=== PATIENT | female | born 1980 | race Caucasian/White ===

== ENCOUNTER 2023-11-18 12:19 | Outpatient (OUT) | payer SELFPAY ==
[2023-11-20 03:07] LABS: Vitamin B12 >2000 pg/mL (232-1245)
== END 2023-11-18 12:20 | disposition home or self-care (01) ==
DX: R42 Dizziness and giddiness (principal); R09.89 Other specified symptoms and signs involving the circulatory and respiratory systems
CPT/HCPCS: 36415; 82607; 83540

== ENCOUNTER 2024-05-21 02:17 | Emergency (ER) | payer SELFPAY ==
[2024-05-21] VITALS (33 sets, daily range): BP systolic 115–142; BP diastolic 62–86; PULSE 53–86; TEMP 36.6; O2SAT 98–99; BMI 31.0
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
--- NOTE | 2024-05-21 02:45 | XR_ITS ---
The [address] [address] Patient Name: RITA VERNON MRN: [id number] date: 1980 Sex: F Assigned Patient Location: ER Current Patient Location: ED.MAIN Accession/Order Number: [id number] Exam Date: 05/21/2024 03:17 Report Date: 05/21/2024 04:51 At the request of: BRAD RIZZO Procedure: XR chest 2V EXAM: XR chest 2V HISTORY: abdominal pain COMPARISON: None. TECHNIQUE: 2 views of the chest were obtained. FINDINGS: The cardiac silhouette is normal in size. The lungs are clear. There is no significant pneumothorax or pleural effusion. No acute osseous abnormality is seen. XR/XR chest 2V IMPRESSION: 1. No acute cardiopulmonary abnormality. Electronically authenticated by: Brianda FLEMING Date: 05/21/2024 04:51
--- NOTE | 2024-05-21 02:45 | ED.ABDPAIN1 ---
HPI - Abdominal Pain General Chief Complaint: Abdominal Pain Stated Complaint: ABD PAIN/BACK PAIN Time Seen by Provider: 05/21/24 02:42 Source: patient Mode of arrival: walk-in Limitations: no limitations History of Present Illness HPI narrative: presents complaining of epigastric pain that started yesterday afternoon. Associated with nausea. also pain right back. Not short of breath Related Data Home Medications ?Medication ?Instructions ?Recorded ?Confirmed ferrous sulfate 325 mg (65 mg 325 mg PO DAILY 05/21/24 05/21/24 iron) tablet (iron) folic acid 1 mg tablet 1,000 mcg PO DAILY 05/21/24 05/21/24 Allergies Allergy/AdvReac Type Severity Reaction Status Date / Time Iodinated Contrast Media Allergy Unknown Unknown Verified 05/21/24 02:25 triamcinolone [From Kenalog] Allergy Hives Verified 05/21/24 02:25 Review of Systems ROS Status of ROS 10 or more systems reviewed and unremarkable except as noted in history and below Exam Constitutional Vital Signs, click to edit/add: Last Vital Signs Temp 97.8 F 05/21/24 02:20 Pulse 68 05/21/24 06:20 Resp 20 05/21/24 06:20 BP 135/86 05/21/24 05:56 Pulse Ox 98 05/21/24 02:23 O2 Del Method Room Air 05/21/24 02:20 Common normals: no apparent distress, average body habitus, oriented x3, no limitations, healthy appearing, alert and well nourished [facility] Common normals: head/scalp atraumatic Respiratory Common normals: normal respiratory effort, no retractions, no use of accessory muscles and clear to auscultation bilaterally Cardio Common normals: regular rate, regular rhythm, S1 normal heart sound and S2 normal heart sound GI Other: epigastric tenderness. no guarding Extremity Common normals: normal to inspection and full ROM Neuro Common normals: oriented x3, CN's II-XII intact bilaterally, moves all extremities and no focal motor deficits Psych Appearance: grossly normal Course Vital Signs Vital signs: Vital Signs Temperature 97.8 F 05/21/24 02:20 Pulse Rate 80 05/21/24 02:20 Respiratory Rate 18 05/21/24 02:20 Blood Pressure 142/85 H 05/21/24 02:20 Pulse Oximetry 99 05/21/24 02:20 Oxygen Delivery Method Room Air 05/21/24 02:20 Temperature 97.8 F 05/21/24 02:20 Pulse Rate 68 05/21/24 06:20 Respiratory Rate 20 05/21/24 06:20 Blood Pressure 135/86 05/21/24 05:56 Pulse Oximetry 98 05/21/24 02:23 Oxygen Delivery Method Room Air 05/21/24 02:20 MDM - Abdominal Pain MDM Narrative Medical decision making narrative: presents with epigastric pain radiating into her back. CT with finding of cholelithiasis with gallbladder distension. US recommended. Also diffuse bony sclerotic lesions that may represent bone islands but malignancy not excluded. GB US ordered. Patient informed of the bony lesions. States she is aware of them and had bone scan about 10 years ago. care transferred to Dr Melchor at change of shift Lab Data Labs: Lab Results 05/21/24 05/21/24 Range/Units 02:30 04:13 WBC 13.2 H (4.0-11.0) 10^3/uL RBC 4.63 (4.20-5.40) 10^6/uL Hgb 14.5 (12.0-16.0) g/dL Hct 41.9 (36.0-48.0) % MCV 90.5 (81.0-99.0) fL MCH 31.3 (26.7-34.0) pg MCHC 34.6 (29.9-35.2) g/dL RDW 13.1 (11.0-15.0) % Plt Count 265 (150-450) 10^3/uL MPV 9.9 (9.5-13.5) fL Neut % (Auto) 83.6 H (43.0-75.0) % Lymph % (Auto) 9.5 L (20.5-60.0) % [place] % (Auto) 5.1 (1.7-12.0) % Eos % (Auto) 0.9 (0.9-7.0) % Baso % (Auto) 0.5 (0.2-2.0) % Neut # (Auto) 11.0 H (1.4-6.5) 10^3/uL Lymph # (Auto) 1.3 (1.2-3.8) 10^3/uL [place] # (Auto) 0.7 (0.3-0.8) 10^3/uL Eos # (Auto) 0.1 (0.0-0.7) 10^3/uL Baso # (Auto) 0.1 (0.0-0.1) 10^3/uL Abs Immat Gran (auto) 0.05 H (0.00-0.03) 10^3/uL Imm/Tot Granulo (auto) 0.4 (0.0-0.5) % Sodium 141 (136-145) mmol/L Potassium 3.9 (3.5-5.1) mmol/L Chloride 102 (98-107) mmol/L Carbon Dioxide 25.9 (21.0-32.0) mmol/L Anion Gap 17.0 BUN 15.0 (7.0-18.0) mg/dL Creatinine 0.88 (0.55-1.02) mg/dL Est GFR ( Amer) >60 (>=60) Est GFR (Non-Af Amer) >60 (>=60) BUN/Creatinine Ratio 17.0 Glucose 167 H (74-106) mg/dL Lactate 3.3 H* (0.4-2.0) mmol/L Calcium 9.6 (8.5-10.1) mg/dL Total Bilirubin 0.9 (0.2-1.0) mg/dL AST 156 H (15-37) U/L ALT 94 H (14-59) U/L Alkaline Phosphatase 97 (46-116) U/L Troponin I High Sens <4.0 L (4.0-51.3) pg/mL Total Protein 7.5 (6.4-8.2) g/dL Albumin 3.9 (3.4-5.0) g/dL Globulin 3.6 g/dL Albumin/Globulin Ratio 1.1 Lipase 41.0 (16.0-77.0) U/L Urine Color Yellow (YELLOW) Urine Clarity Clear (CLEAR) Urine pH 7.0 (5.0-9.0) Ur Specific [place] 1.020 (1.005-1.025) Urine Protein Negative (NEG/TRACE) mg/dL Urine Glucose (UA) Negative (NEGATIVE) mg/dL Urine Ketones Negative (NEGATIVE) mg/dL Urine Occult Blood Large A (NEGATIVE) Urine Nitrite Negative (NEGATIVE) Urine Bilirubin Negative (NEGATIVE) Urine Urobilinogen 0.2 (0.2-1.0) EU/dL Ur Leukocyte Esterase Negative (NEGATIVE) Urine RBC 10-20 A (0-2) #/HPF Urine WBC 0-2 A (NONE SEEN) #/HPF Ur Squamous Epith Cells Few A (NONE/RARE) #/LPF Urine Crystals None seen (None Seen) #/HPF Urine Bacteria Small A (NONE SEEN) #/HPF Urine Casts None seen (NONE SEEN) #/LPF Urine Mucus Small A (NONE SEEN) Ur Culture Indicated? Yes Imaging Data Chest x-ray: Radiologist's impression: ITS Impressions Chest X-Ray 05/21/24 02:45 IMPRESSION: 1. No acute cardiopulmonary abnormality. Electronically authenticated by: Brianda FLEMING Date: 05/21/2024 04:51 Abdomen/Pelvis CT 05/21/24 02:46 IMPRESSION: 1. Cholelithiasis with gallbladder distention. Consider further evaluation with a right upper quadrant ultrasound examination. 2. Cortical thickening and multiple sclerotic lesions involving the right ischial bone and sclerosis of the L2 vertebral body. There are also scattered sclerotic lesions in the bones. While some of these could represent bone islands, malignancy is not excluded. Consider further evaluation with a nuclear medicine bone scan. 3. There is a 2 mm nodule in the right middle lobe. Recommend follow-up according to Fleischner Society guidelines: A CT of the chest in one year. 4. Normal appearance. 5. Urinary bladder wall thickening. Please correlate with urinalysis for infection. 6. Left adnexal cystic lesion measuring up to 4.2 x 3.6 cm. This could be further evaluated with a pelvic ultrasound examination if clinically indicated. 7. Enlarged bilateral inguinal lymph nodes, nonspecific. Electronically authenticated by: Brianda FLEMING Date: 05/21/2024 04:50 Discharge Plan Discharge Chief Complaint: Abdominal Pain Clinical Impression: Abdominal pain Patient Disposition: Still a Patient Prescriptions / Home Meds: No Action ferrous sulfate [iron] 325 mg (65 mg iron) tablet 325 mg PO DAILY folic acid 1 mg tablet 1,000 mcg PO DAILY Print Language: Nepali Referrals: Physician,Non-Staff, MD [Primary Care Provider] - 1 week
--- NOTE | 2024-05-21 02:46 | CT_ITS ---
[address] [address] Patient Name: RITA VERNON MRN: [id number] date: 1980 Sex: F Assigned Patient Location: ER Current Patient Location: [facility] Accession/Order Number: [id number] Exam Date: 05/21/2024 03:17 Report Date: 05/21/2024 04:50 At the request of: BRAD RIZZO Procedure: CT abdomen pelvis wo con EXAM: CT abdomen pelvis wo con HISTORY: abdominal pain COMPARISON: None. TECHNIQUE: Noncontrast axial CT images through the abdomen and pelvis were obtained with coronal and sagittal reformats. Dose reduction techniques were achieved by using automated exposure control and/or adjustment of mA and/or kV according to patient size and/or use of iterative reconstruction technique. FINDINGS: There is a 2 mm nodule in the right middle lobe (series 3, image 2). Abdomen: Please note that the sensitivity for detection of focal lesions or vascular disease is markedly reduced without intravenous contrast. The liver and spleen are unremarkable. There is no intra or extrahepatic biliary duct dilatation. There is cholelithiasis with gallbladder distention. The pancreas, adrenal glands, kidneys, and bowel loops, including the appendix, are unremarkable. There is no mesenteric or retroperitoneal lymphadenopathy. Pelvis: The bladder demonstrates wall thickening. The rectum is unremarkable. The uterus is present. The right ovary appears within normal limits by CT. There is a left adnexal cystic lesion that measures up to 4.2 x 3.6 cm (series 3, image 118). There are large bilateral inguinal lymph nodes measuring up to 1.3 cm in short axis diameter on the right (series 3, image 163). There is cortical thickening and multiple small sclerotic lesions involving the right ischial bone. There are scattered sclerotic lesions throughout the visualized bones. There is sclerosis of the L2 vertebral body with sclerotic lesions. CT/CT abdomen pelvis wo con IMPRESSION: 1. Cholelithiasis with gallbladder distention. Consider further evaluation with a right upper quadrant ultrasound examination. 2. Cortical thickening and multiple sclerotic lesions involving the right ischial bone and sclerosis of the L2 vertebral body. There are also scattered sclerotic lesions in the bones. While some of these could represent bone islands, malignancy is not excluded. Consider further evaluation with a nuclear medicine bone scan. 3. There is a 2 mm nodule in the right middle lobe. Recommend follow-up according to Fleischner Society guidelines: A CT of the chest in one year. 4. Normal appearance. 5. Urinary bladder wall thickening. Please correlate with urinalysis for infection. 6. Left adnexal cystic lesion measuring up to 4.2 x 3.6 cm. This could be further evaluated with a pelvic ultrasound examination if clinically indicated. 7. Enlarged bilateral inguinal lymph nodes, nonspecific. Electronically authenticated by: Brianda FLEMING Date: 05/21/2024 04:50
--- NOTE | 2024-05-21 02:48 | ECG_ITS ---
The [facility] Test Date: 2024-05-21 Pat Name: RITA VERNON Department: Room: - Gender: Female Registered Veterinary Technician: : 1980 Requested By: [id number] Order Number: [id number] Reading MD: CHARLEEN GIL Measurements Intervals [place] Rate: 72 P: 53 NM: 140 QRS: 65 QRSD: 92 T: -22 QT: 394 QTc: 419 Interpretive Statements 1100 Sinus rhythm 4068 Nonspecific [place] abnormality, can't exclude inferolateral ischemia 9130 borderline ECG No previous ECG available for comparison Electronically Signed On 05-21-2024 6:49:00 EDT by CHARLEEN GIL
[2024-05-21 02:51] LABS: Basophils Absolute Auto 0.1 10^3/uL (0.0-0.1); Basophils Percent Auto 0.5 % (0.2-2.0); Eosinophils Absolute Auto 0.1 10^3/uL (0.0-0.7); Eosinophils Percent Auto 0.9 % (0.9-7.0); Hematocrit 41.9 % (36.0-48.0); Hemoglobin 14.5 g/dL (12.0-16.0); Immature Granulocytes Abs Auto 0.05 10^3/uL (0.00-0.03); Immature Granulocytes Pct Auto 0.4 % (0.0-0.5); Lymphocytes Absolute Auto 1.3 10^3/uL (1.2-3.8); Lymphocytes Percent Auto 9.5 % (20.5-60.0); Mean Corpuscular HGB Conc 34.6 g/dL (29.9-35.2); Mean Corpuscular Hemoglobin 31.3 pg (26.7-34.0); Mean Corpuscular Volume 90.5 fL (81.0-99.0); Mean Platelet Volume 9.9 fL (9.5-13.5); Monocytes Absolute Auto 0.7 10^3/uL (0.3-0.8); Monocytes Percent Auto 5.1 % (1.7-12.0); Neutrophils Percent Auto 83.6 % (43.0-75.0); Platelet Count 265 10^3/uL (150-450); Red Blood Count 4.63 10^6/uL (4.20-5.40); Red Cell Distribution Width 13.1 % (11.0-15.0); White Blood Count 13.2 10^3/uL (4.0-11.0)
[2024-05-21] MEDS: 0.9 % SODIUM CHLORIDE 1,000 ML 999 ML IV (03:00)
[2024-05-21 03:05] LABS: Alanine Aminotransferase 94 U/L (14-59); Albumin Globulin Ratio 1.1; Albumin Level 3.9 g/dL (3.4-5.0); Alkaline Phosphatase 97 U/L (46-116); Aspartate Amino Transferase 156 U/L (15-37); Bilirubin Total 0.9 mg/dL (0.2-1.0); Calcium 9.6 mg/dL (8.5-10.1); Carbon Dioxide 25.9 mmol/L (21.0-32.0); Chloride 102 mmol/L (98-107); Estimated GFR (African America >60 (>=60); Estimated GFR (Non-African Ame >60 (>=60); Globulin 3.6 g/dL; Glucose 167 mg/dL (74-106); Potassium 3.9 mmol/L (3.5-5.1); Sodium 141 mmol/L (136-145); Total Protein 7.5 g/dL (6.4-8.2); Troponin I High Sensitivity <4.0 pg/mL (4.0-51.3)
[2024-05-21 03:11] LABS: Lactate/Lactic Acid 3.3 mmol/L (0.4-2.0)
[2024-05-21 04:21] LABS: Bilirubin Urine NEGATIVE (NEGATIVE); Blood Urine LARGE (NEGATIVE); Clarity Urine CLEAR (CLEAR); Color Urine YELLOW (YELLOW); Glucose Urine UA NEGATIVE (NEGATIVE); Ketones Urine NEGATIVE (NEGATIVE); Leukocyte Esterase Urine NEGATIVE (NEGATIVE); Nitrite Urine NEGATIVE (NEGATIVE); Protein Urine NEGATIVE (NEG/TRACE); Urine Microscopic Indicated YES; Urobilinogen Urine 0.2 EU/dL (0.2-1.0)
[2024-05-21 04:27] LABS: Bacteria Urine SMALL #/HPF (NONE SEEN); Cast Seen? NONE SEEN #/LPF (NONE SEEN); Crystals Seen? None Seen #/HPF (None Seen); Mucus Urine SMALL (NONE SEEN); Squamous Epithelial Cell Urine FEW #/LPF (NONE/RARE); Urine Culture Indicated YES; WBC Urine 0-2 #/HPF (NONE SEEN)
--- NOTE | 2024-05-21 05:11 | US_ITS ---
The [place] [id number] Patient Name: RITA VERNON MRN: [id number] date: 1980 Sex: F Assigned Patient Location: ER Current Patient Location: ER Accession/Order Number: [id number] Exam Date: 05/21/2024 07:27 Report Date: 05/21/2024 08:03 At the request of: BRAD RIZZO Procedure: US right upper quadrant EXAM: US right upper quadrant HISTORY: cholecystitis COMPARISON: None. TECHNIQUE: Grayscale, color and Doppler FINDINGS: The liver is normal in size, contour and cortical echotexture measuring 15.9 cm in length. No focal hepatic mass. Hepatopedal flow in the main portal vein with velocity of 26 cm/s The visualized pancreas is normal The gallbladder is normal in size. The wall measures 2.8 mm, normal. Negative sonographic Carias sign. The common bile duct measures 6.3 mm. Multiple layering echogenic foci measuring up to 7 mm with acoustic shadowing, cholelithiasis The right kidney is normal measuring 11.9 x 4.7 x 4.3 cm US/US right upper quadrant IMPRESSION: Cholelithiasis without evidence of acute cholecystitis Electronically authenticated by: ARTEMIO RENAE Date: 05/21/2024 08:03
[2024-05-21] MEDS: KETOROLAC TROMETHAMINE 30 MG/ML VIAL IVP (05:53)
[2024-05-21 07:08] LABS: Lactate/Lactic Acid 1.6 mmol/L (0.4-2.0)
--- NOTE | 2024-05-21 08:20 | ED.ABDPAIN1 ---
HPI - Abdominal Pain General Chief Complaint: Abdominal Pain Stated Complaint: ABD PAIN/BACK PAIN Time Seen by Provider: 05/21/24 02:42 Source: patient Mode of arrival: walk-in Limitations: no limitations History of Present Illness HPI narrative: 44-year-old female presented to the emergency department and was initially seen by Dr. Christianson and signed out to me at change of shift after discussing the case with him thoroughly. Please see his full history and physical exam. Related Data Home Medications ?Medication ?Instructions ?Recorded ?Confirmed ferrous sulfate 325 mg (65 mg 325 mg PO DAILY 05/21/24 05/21/24 iron) tablet (iron) folic acid 1 mg tablet 1,000 mcg PO DAILY 05/21/24 05/21/24 Previous Rx's ?Medication ?Instructions ?Recorded acetaminophen 300 mg-codeine 30 mg 1 tab PO Q6H PRN pain 5 days #20 05/21/24 tablet tabs ondansetron 4 mg disintegrating 4 mg PO Q6H PRN nausea and 05/21/24 tablet vomiting #20 tabs Allergies Allergy/AdvReac Type Severity Reaction Status Date / Time Iodinated Contrast Media Allergy Unknown Unknown Verified 05/21/24 02:25 triamcinolone [From Kenalog] Allergy Hives Verified 05/21/24 02:25 Exam Constitutional Vital Signs, click to edit/add: Last Vital Signs Temp 97.8 F 05/21/24 02:20 Pulse 53 L 05/21/24 07:20 Resp 18 05/21/24 07:20 BP 135/86 05/21/24 05:56 Pulse Ox 98 05/21/24 02:23 O2 Del Method Room Air 05/21/24 02:20 Course Vital Signs Vital signs: Vital Signs Temperature 97.8 F 05/21/24 02:20 Pulse Rate 80 05/21/24 02:20 Respiratory Rate 18 05/21/24 02:20 Blood Pressure 142/85 H 05/21/24 02:20 Pulse Oximetry 99 05/21/24 02:20 Oxygen Delivery Method Room Air 05/21/24 02:20 Temperature 97.8 F 05/21/24 02:20 Pulse Rate 53 L 05/21/24 07:20 Respiratory Rate 18 05/21/24 07:20 Blood Pressure 135/86 05/21/24 05:56 Pulse Oximetry 98 05/21/24 02:23 Oxygen Delivery Method Room Air 05/21/24 02:20 MDM - Abdominal Pain MDM Narrative Medical decision making narrative: CAT scan showed gallstones and recommended gallbladder ultrasound which was performed. Gallstones are noted on the ultrasound but no acute cholecystitis. She is feeling much better now and is able to be discharged home and she will follow-up as an outpatient with general surgery. She was provided pain medication and Zofran. Some bony lesions were noted in the lumbar spine and this is known to the patient, she was diagnosed with Paget's disease and has been seen at the [facility] for that issue. Treatment diagnosis and follow-up were discussed with the patient thoroughly. Differential Diagnosis Differential diagnosis: Likely abdominal pain, calculus of kidney, constipation, gastroenteritis, pancreatitis and other (Biliary colic, acute cholecystitis) Lab Data Attestation: I reviewed the patient's lab results. Labs: Lab Results 05/21/24 05/21/24 05/21/24 Range/Units 02:30 04:13 06:42 WBC 13.2 H (4.0-11.0) 10^3/uL RBC 4.63 (4.20-5.40) 10^6/uL Hgb 14.5 (12.0-16.0) g/dL Hct 41.9 (36.0-48.0) % MCV 90.5 (81.0-99.0) fL MCH 31.3 (26.7-34.0) pg MCHC 34.6 (29.9-35.2) g/dL RDW 13.1 (11.0-15.0) % Plt Count 265 (150-450) 10^3/uL MPV 9.9 (9.5-13.5) fL Neut % (Auto) 83.6 H (43.0-75.0) % Lymph % (Auto) 9.5 L (20.5-60.0) % [place] % (Auto) 5.1 (1.7-12.0) % Eos % (Auto) 0.9 (0.9-7.0) % Baso % (Auto) 0.5 (0.2-2.0) % Neut # (Auto) 11.0 H (1.4-6.5) 10^3/uL Lymph # (Auto) 1.3 (1.2-3.8) 10^3/uL [place] # (Auto) 0.7 (0.3-0.8) 10^3/uL Eos # (Auto) 0.1 (0.0-0.7) 10^3/uL Baso # (Auto) 0.1 (0.0-0.1) 10^3/uL Abs Immat Gran (auto) 0.05 H (0.00-0.03) 10^3/uL Imm/Tot Granulo (auto) 0.4 (0.0-0.5) % Sodium 141 (136-145) mmol/L Potassium 3.9 (3.5-5.1) mmol/L Chloride 102 (98-107) mmol/L Carbon Dioxide 25.9 (21.0-32.0) mmol/L Anion Gap 17.0 BUN 15.0 (7.0-18.0) mg/dL Creatinine 0.88 (0.55-1.02) mg/dL Est GFR ( Amer) >60 (>=60) Est GFR (Non-Af Amer) >60 (>=60) BUN/Creatinine Ratio 17.0 Glucose 167 H (74-106) mg/dL Lactate 3.3 H* 1.6 (0.4-2.0) mmol/L Calcium 9.6 (8.5-10.1) mg/dL Total Bilirubin 0.9 (0.2-1.0) mg/dL AST 156 H (15-37) U/L ALT 94 H (14-59) U/L Alkaline Phosphatase 97 (46-116) U/L Troponin I High Sens <4.0 L (4.0-51.3) pg/mL Total Protein 7.5 (6.4-8.2) g/dL Albumin 3.9 (3.4-5.0) g/dL Globulin 3.6 g/dL Albumin/Globulin Ratio 1.1 Lipase 41.0 (16.0-77.0) U/L Urine Color Yellow (YELLOW) Urine Clarity Clear (CLEAR) Urine pH 7.0 (5.0-9.0) Ur Specific [place] 1.020 (1.005-1.025) Urine Protein Negative (NEG/TRACE) mg/dL Urine Glucose (UA) Negative (NEGATIVE) mg/dL Urine Ketones Negative (NEGATIVE) mg/dL Urine Occult Blood Large A (NEGATIVE) Urine Nitrite Negative (NEGATIVE) Urine Bilirubin Negative (NEGATIVE) Urine Urobilinogen 0.2 (0.2-1.0) EU/dL Ur Leukocyte Esterase Negative (NEGATIVE) Urine RBC 10-20 A (0-2) #/HPF Urine WBC 0-2 A (NONE SEEN) #/HPF Ur Squamous Epith Cells Few A (NONE/RARE) #/LPF Urine Crystals None seen (None Seen) #/HPF Urine Bacteria Small A (NONE SEEN) #/HPF Urine Casts None seen (NONE SEEN) #/LPF Urine Mucus Small A (NONE SEEN) Ur Culture Indicated? Yes Imaging Data CT scan - abdomen: Radiologist's impression: ITS Impressions Chest X-Ray 05/21/24 02:45 IMPRESSION: 1. No acute cardiopulmonary abnormality. Electronically authenticated by: Brianda FLEMING Date: 05/21/2024 04:51 Abdomen/Pelvis CT 05/21/24 02:46 IMPRESSION: 1. Cholelithiasis with gallbladder distention. Consider further evaluation with a right upper quadrant ultrasound examination. 2. Cortical thickening and multiple sclerotic lesions involving the right ischial bone and sclerosis of the L2 vertebral body. There are also scattered sclerotic lesions in the bones. While some of these could represent bone islands, malignancy is not excluded. Consider further evaluation with a nuclear medicine bone scan. 3. There is a 2 mm nodule in the right middle lobe. Recommend follow-up according to Fleischner Society guidelines: A CT of the chest in one year. 4. Normal appearance. 5. Urinary bladder wall thickening. Please correlate with urinalysis for infection. 6. Left adnexal cystic lesion measuring up to 4.2 x 3.6 cm. This could be further evaluated with a pelvic ultrasound examination if clinically indicated. 7. Enlarged bilateral inguinal lymph nodes, nonspecific. Electronically authenticated by: Brianda FLEMING Date: 05/21/2024 04:50 Upper Quadrant Ultrasound 05/21/24 05:11 IMPRESSION: Cholelithiasis without evidence of acute cholecystitis Electronically authenticated by: ARTEMIO RENAE Date: 05/21/2024 08:03 ECG Data Attestation: I personally reviewed and interpreted this ECG as follows: (EKG on my interpretation shows sinus rhythm with a rate of 72 and no acute change.) Discharge Plan Discharge Chief Complaint: Abdominal Pain Clinical Impression: Cholelithiasis, Biliary colic Patient Disposition: Home, Self-Care Time of Disposition Decision: 08:18 Condition: Good Mode of Transportation: Private Vehicle Prescriptions / Home Meds: New acetaminophen-codeine 300-30 mg tablet 1 tab PO Q6H PRN (Reason: pain) 5 Days Qty: 20 0RF ondansetron 4 mg tablet,disintegrating 4 mg PO Q6H PRN (Reason: nausea and vomiting) Qty: 20 0RF No Action ferrous sulfate [iron] 325 mg (65 mg iron) tablet 325 mg PO DAILY folic acid 1 mg tablet 1,000 mcg PO DAILY Print Language: Sammarinese Instructions: Biliary Colic (ED), Gallstones (ED) Referrals: Freeman Mccall MD [Physician] - 1 week Physician,Non-Staff, [Primary Care Provider] - 1 week
== END 2024-05-21 08:55 | disposition home or self-care (01) ==
PROVIDERS: Internal Medicine; Emergency Provider Emergency Medicine
DX: K80.20 Calculus of gallbladder without cholecystitis without obstruction (principal); K80.50 Calculus of bile duct without cholangitis or cholecystitis without obstruction
CPT/HCPCS: 36415; 71046; 74176; 76705; 80053; 81001; 83605; 83690; 84484; 85025; 87086; 93005; 96374; 99285; J1885